=== PATIENT | female | born 1950 | race Caucasian/White ===

== ENCOUNTER → 2019-04-24 | Day surgery (SDC) | payer OTHER ==
[~2019-04-24] VITALS: Ht 149.8 cm; Wt 83.9 kg
[~2019-04-24] MED LIST: CELEBREX50 MG PO; CELEXA20 MG PO; CITALOPRAM20 MG PO; LEVOTHYROXINE75 MCG PO; METFORMIN XR500 MG PO; SEPTRA DS1 TAB PO; VITAMIN D400 I1 PO
[2019-04-24 07:02] VITALS: BP 127/76
[2019-04-24 07:51] VITALS: BP 126/74
[2019-04-24 08:06] VITALS: BP 138/75
[2019-04-24 08:23] VITALS: BP 133/69
== END | disposition home or self-care (01) ==
LOC: SDC 04-21 08:45
DX: Z12.11 Encounter for screening for malignant neoplasm of colon (principal); F41.9 Anxiety disorder, unspecified; F32.9 Major depressive disorder, single episode, unspecified; E11.9 Type 2 diabetes mellitus without complications; E66.9 Obesity, unspecified; Z68.37 Body mass index [BMI] 37.0-37.9, adult; Z79.899 Other long term (current) drug therapy
CPT/HCPCS: 00812; G0121

== ENCOUNTER → 2019-04-27 | Outpatient (CLI) | payer OTHER ==
[~2019-04-27] VITALS: Ht 149.8 cm; Wt 83.9 kg
== END | disposition home or self-care (01) ==
LOC: US 03-19 07:30
DX: K76.0 Fatty (change of) liver, not elsewhere classified (principal); R94.5 Abnormal results of liver function studies; K80.20 Calculus of gallbladder without cholecystitis without obstruction

== ENCOUNTER 2020-01-21 16:27 | Emergency (ER) | payer OTHER ==
[~2020-01-21] VITALS: Ht 149.8 cm; Wt 81.6 kg
== END 2020-01-21 19:52 | disposition home or self-care (01) ==
LOC: ED 16:27
DX: S01.81XA Laceration without foreign body of other part of head, initial encounter (principal); M54.2 Cervicalgia; E11.9 Type 2 diabetes mellitus without complications; J45.909 Unspecified asthma, uncomplicated; Z79.899 Other long term (current) drug therapy; W18.39XA Other fall on same level, initial encounter; Y93.89 Activity, other specified; Y92.098 Other place in other non-institutional residence as the place of occurrence of the external cause; Y99.8 Other external cause status

== ENCOUNTER → 2020-02-10 | Outpatient (CLI) | payer OTHER ==
[2020-02-10 11:15] LABS: BASO % 0.9 % (0.0-1.0); EOS # 0.1 10*3/uL (0.0-0.4); EOS % 1.9 % (1.0-4.0); HEMATOCRIT 38.4 % (37.0-47.0); LYMPH # 1.6 10*3/uL (1.3-4.4); MEAN CELL VOLUME 92.5 fl (81.0-99.0); MEAN CORPUSCULAR HGB 30.8 pg (27.0-31.0); MEAN CORPUSCULAR HGB CONC 33.3 g/dl (33.0-37.0); MEAN PLATELET VOLUME 9.6 fl (9.6-12.3); MONO # 0.4 10*3/uL (0.1-1.0); MONO % 9.1 % (3.0-9.0); NEUT # 2.1 10*3/uL (2.3-7.9); NEUT % 49.4 % (47.0-73.0); PLATELET COUNT AUTOMATED 216 10*3/uL (130-400); RED BLOOD COUNT 4.15 10*6/uL (4.10-5.10); RED CELL DISTRI WIDTH 12.8 % (0-14.5); RETICULOCYTE % 2.45 % (0.50-2.50); WHITE BLOOD COUNT 4.3 10*3/uL (4.8-10.8)
[2020-02-10 11:33] LABS: BILIRUBIN NEGATIVE (NEGATIVE); BLOOD NEGATIVE (NEGATIVE); CLARITY CLEAR (CLEAR); COLOR YELLOW (YELLOW); GLUCOSE NEGATIVE (NEGATIVE); KETONE NEGATIVE (NEGATIVE); LEUKO ESTERASE 2+ (NEGATIVE); NITRITE NEGATIVE (NEGATIVE); SPECIFIC GRAVITY 1.015 (1.005-1.030); UROBILINOGEN 0.2 E.U./dl (0.2-1.0)
[2020-02-10 11:36] LABS: ALBUMIN 4.3 gm/dl (3.1-4.5); BUN 19 mg/dl (7-24); CHLORIDE 101 mmol/L (98-107); CHOLESTEROL 212 mg/dL (<200); GAMMA GLUTAMYL TRANSPEPTIDASE 60 U/L (5-55); SODIUM 135 mmol/L (136-145)
[2020-02-10 11:46] LABS: ALKALINE PHOSPHATASE 113 U/L (45-117); CPK 78 U/L (26-192); CREATININE 0.79 mg/dL (0.55-1.02); HDL CHOLESTEROL 84 mg/dl (40-60); IRON 101 ug/dL (50-170); LDL CHOLESTEROL 108 mg/dL (9-159); SGOT/AST 27 IU/L (3-35); SGPT/ALT 39 U/L (12-78); T3 UPTAKE 30 % (31-39); THYROXINE (T4) TOTAL 11.3 ug/dl (4.8-13.9); TOTAL IRON BINDING CAPACITY 357 ug/dl (250-450); TRIGLYCERIDES 99 mg/dl (<150); VLDL CHOLESTEROL 20 mg/dL (6-40)
[2020-02-10 12:06] LABS: VITAMIN D, 25-HYDROXY 55.4 ng/mL (30-100)
[2020-02-10 12:07] LABS: FERRITIN 209.4 ng/mL (10.0-291.0)
[2020-02-10 14:04] LABS: BACTERIA TRACE
== END | disposition home or self-care (01) ==
LOC: LAB 10:20
PROVIDERS: Family Medicine
DX: E11.9 Type 2 diabetes mellitus without complications (principal); E78.5 Hyperlipidemia, unspecified; E55.9 Vitamin D deficiency, unspecified; R79.89 Other specified abnormal findings of blood chemistry; R53.83 Other fatigue

== ENCOUNTER 2020-06-06 13:25 | Emergency (ER) | payer OTHER ==
[~2020-06-06] VITALS: Ht 149.8 cm; Wt 81.2 kg
[2020-06-06 15:36] LABS: BILIRUBIN Negative (Negative); BLOOD Negative (Negative); CLARITY Clear (Clear); COLOR Yellow (Yellow); GLUCOSE Negative (Negative); KETONE Negative (Negative); LEUKO ESTERASE 3+ (Negative); NITRITE Negative (Negative); SPECIFIC GRAVITY 1.015 (1.001-1.030)
[2020-06-06 15:48] LABS: BACTERIA 2+
[2020-06-06 15:49] LABS: EPITHELIAL CELLS 16-20
[2020-06-06 16:28] LABS: BASO # 0.1 10*3/uL (0.0-0.1); EOS # 0.1 10*3/uL (0.0-0.4); HEMATOCRIT 40.5 % (37.0-47.0); LYMPH % 39.1 % (27.0-41.0); MEAN CELL VOLUME 95.1 fl (81.0-99.0); MEAN CORPUSCULAR HGB 30.8 pg (27.0-31.0); MEAN CORPUSCULAR HGB CONC 32.3 g/dl (33.0-37.0); MEAN PLATELET VOLUME 9.4 fl (9.6-12.3); MONO # 0.4 10*3/uL (0.1-1.0); MONO % 8.2 % (3.0-9.0); NEUT # 2.5 10*3/uL (2.3-7.9); NEUT % 48.7 % (47.0-73.0); PLATELET COUNT AUTOMATED 174 10*3/uL (130-400); RED BLOOD COUNT 4.26 10*6/uL (4.10-5.10); RED CELL DISTRI WIDTH 12.6 % (0-14.5); WHITE BLOOD COUNT 5.1 10*3/uL (4.8-10.8)
[2020-06-06 16:44] LABS: ALBUMIN 4.3 gm/dl (3.1-4.5); ALKALINE PHOSPHATASE 106 U/L (45-117); BUN 17 mg/dl (7-24); CHLORIDE 102 mmol/L (98-107); CREATININE 0.82 mg/dL (0.55-1.02); POTASSIUM 4.1 mmol/L (3.5-5.1); SGOT/AST 19 IU/L (3-35); SGPT/ALT 26 U/L (12-78); SODIUM 140 mmol/L (136-145); TOTAL PROTEIN 8.2 gm/dL (6.4-8.2)
[2020-06-06] MEDS ORDERED: OMNICEF300 MG PO (17:09)
[2020-06-06] MEDS ORDERED: Orphenadrine C100 MG PO (17:09)
== END 2020-06-06 17:32 | disposition home or self-care (01) ==
LOC: ED 13:25
PROVIDERS: Registered Nurse
DX: S39.012A Strain of muscle, fascia and tendon of lower back, initial encounter (principal); N39.0 Urinary tract infection, site not specified; Z79.899 Other long term (current) drug therapy; X50.0XXA Overexertion from strenuous movement or load, initial encounter; Y93.89 Activity, other specified; Y92.89 Other specified places as the place of occurrence of the external cause; Y99.8 Other external cause status

== ENCOUNTER → 2020-06-17 | Outpatient (CLI) | payer OTHER ==
[~2020-06-17] MED LIST changes: +OMNICEF300 MG PO; +Orphenadrine C100 MG PO
[2020-06-17 11:27] LABS: BASO # 0.1 10*3/uL (0.0-0.1); BASO % 0.9 % (0.0-1.0); EOS # 0.1 10*3/uL (0.0-0.4); EOS % 1.1 % (1.0-4.0); HEMATOCRIT 40.2 % (37.0-47.0); LYMPH # 1.9 10*3/uL (1.3-4.4); LYMPH % 33.2 % (27.0-41.0); MEAN CELL VOLUME 93.5 fl (81.0-99.0); MEAN CORPUSCULAR HGB 30.7 pg (27.0-31.0); MEAN CORPUSCULAR HGB CONC 32.8 g/dl (33.0-37.0); MEAN PLATELET VOLUME 10.4 fl (9.6-12.3); MONO # 0.4 10*3/uL (0.1-1.0); MONO % 6.6 % (3.0-9.0); NEUT # 3.2 10*3/uL (2.3-7.9); NEUT % 57.3 % (47.0-73.0); PLATELET COUNT AUTOMATED 211 10*3/uL (130-400); RED CELL DISTRI WIDTH 12.3 % (0-14.5); RETICULOCYTE % 1.38 % (0.50-2.50); WHITE BLOOD COUNT 5.6 10*3/uL (4.8-10.8)
[2020-06-17 11:58] LABS: ALBUMIN 4.2 gm/dl (3.1-4.5); BUN 24 mg/dl (7-24); CHLORIDE 103 mmol/L (98-107); GAMMA GLUTAMYL TRANSPEPTIDASE 53 U/L (5-55); POTASSIUM 3.9 mmol/L (3.5-5.1); SODIUM 139 mmol/L (136-145)
[2020-06-17 12:10] LABS: ALKALINE PHOSPHATASE 133 U/L (45-117); CHOLESTEROL 202 mg/dL (<200); CPK 70 U/L (26-192); CREATININE 0.82 mg/dL (0.55-1.02); HDL CHOLESTEROL 102 mg/dl (40-60); IRON 80 ug/dL (50-170); LDL CHOLESTEROL 83 mg/dL (9-159); SGOT/AST 24 IU/L (3-35); SGPT/ALT 37 U/L (12-78); T3 UPTAKE 29 % (31-39); THYROXINE (T4) TOTAL 11.2 ug/dl (4.8-13.9); TOTAL IRON BINDING CAPACITY 375 ug/dl (250-450); TOTAL PROTEIN 8.3 gm/dL (6.4-8.2); TRIGLYCERIDES 84 mg/dl (<150); VLDL CHOLESTEROL 17 mg/dL (6-40)
[2020-06-17 13:17] LABS: VITAMIN D, 25-HYDROXY 45.9 ng/mL (30-100)
[2020-06-18 10:08] LABS: FERRITIN 104.9 ng/mL (10.0-291.0)
== END | disposition home or self-care (01) ==
LOC: LAB 09:59
PROVIDERS: ATTEND Family Medicine
DX: R79.89 Other specified abnormal findings of blood chemistry (principal); R53.83 Other fatigue; E78.5 Hyperlipidemia, unspecified; R74.8 Abnormal levels of other serum enzymes; E11.9 Type 2 diabetes mellitus without complications; E55.9 Vitamin D deficiency, unspecified

== ENCOUNTER → 2020-10-17 | Outpatient (CLI) | payer OTHER ==
[~2020-10-17] MED LIST changes: +ASPIRIN CHILDRE81 MG PO; +COLACE100 MG PO; +DOXYCYCLINE100 M3 PO; +GEMFIBROZIL600 MG PO; +GLUCOPHAGE500 M1 PO; +HYDROCODONE-AC1 EAC1 PO; +TRAMADOL HCL50 MG PO; +ULTRA-LIGHT RO1 EACH MC; +XARELTO10 MG PO
[2020-10-17 10:23] LABS: BASO # 0.1 10*3/uL (0.0-0.1); BASO % 1.1 % (0.0-1.0); EOS # 0.1 10*3/uL (0.0-0.4); EOS % 2.1 % (1.0-4.0); HEMATOCRIT 40.1 % (37.0-47.0); LYMPH # 1.9 10*3/uL (1.3-4.4); LYMPH % 36.6 % (27.0-41.0); MEAN CELL VOLUME 93.5 fl (81.0-99.0); MEAN CORPUSCULAR HGB 30.8 pg (27.0-31.0); MEAN CORPUSCULAR HGB CONC 32.9 g/dl (33.0-37.0); MEAN PLATELET VOLUME 9.8 fl (9.6-12.3); MONO # 0.5 10*3/uL (0.1-1.0); MONO % 10.1 % (3.0-9.0); NEUT # 2.6 10*3/uL (2.3-7.9); NEUT % 49.3 % (47.0-73.0); PLATELET COUNT AUTOMATED 207 10*3/uL (130-400); RED BLOOD COUNT 4.29 10*6/uL (4.10-5.10); RED CELL DISTRI WIDTH 12.3 % (0-14.5); WHITE BLOOD COUNT 5.2 10*3/uL (4.8-10.8)
[2020-10-17 10:51] LABS: ALBUMIN 4.2 gm/dl (3.1-4.5); BUN 22 mg/dl (7-24); CHLORIDE 100 mmol/L (98-107); GAMMA GLUTAMYL TRANSPEPTIDASE 24 U/L (5-55); POTASSIUM 4.2 mmol/L (3.5-5.1); SODIUM 135 mmol/L (136-145)
[2020-10-17 11:04] LABS: ALKALINE PHOSPHATASE 122 U/L (45-117); BILIRUBIN Negative (Negative); BLOOD Negative (Negative); CHOLESTEROL 201 mg/dL (<200); CLARITY Clear (Clear); COLOR Yellow (Yellow); CPK 55 U/L (26-192); CREATININE 0.86 mg/dL (0.55-1.02); GLUCOSE Negative (Negative); HDL CHOLESTEROL 85 mg/dl (40-60); IRON 89 ug/dL (50-170); KETONE Negative (Negative); LDL CHOLESTEROL 97 mg/dL (9-159); LEUKO ESTERASE 2+ (Negative); NITRITE Negative (Negative); SGOT/AST 19 IU/L (3-35); SGPT/ALT 25 U/L (12-78); T3 UPTAKE 31 % (31-39); THYROXINE (T4) TOTAL 10.4 ug/dl (4.8-13.9); TOTAL IRON BINDING CAPACITY 409 ug/dl (250-450); TOTAL PROTEIN 8.1 gm/dL (6.4-8.2); TRIGLYCERIDES 93 mg/dl (<150); UROBILINOGEN 0.2 E.U./dl (0.0-1.0); VLDL CHOLESTEROL 19 mg/dL (6-40)
[2020-10-17 11:45] LABS: BACTERIA TRACE
[2020-10-17 11:58] LABS: FERRITIN 159.2 ng/mL (10.0-291.0)
== END | disposition home or self-care (01) ==
LOC: LAB 09:46
PROVIDERS: ATTEND Family Medicine
DX: R79.89 Other specified abnormal findings of blood chemistry (principal); R53.83 Other fatigue; E78.5 Hyperlipidemia, unspecified; E11.9 Type 2 diabetes mellitus without complications; E55.9 Vitamin D deficiency, unspecified

== ENCOUNTER 2020-11-11 11:55 | Inpatient (IN) | payer OTHER ==
[~2020-11-11] VITALS: Ht 154.9 cm; Wt 88.5 kg
[~2020-11-11 11:55] MED LIST changes: -ASPIRIN CHILDRE81 MG PO; -COLACE100 MG PO; -DOXYCYCLINE100 M3 PO; -GEMFIBROZIL600 MG PO; -GLUCOPHAGE500 M1 PO; -HYDROCODONE-AC1 EAC1 PO; -TRAMADOL HCL50 MG PO; -ULTRA-LIGHT RO1 EACH MC; -XARELTO10 MG PO
[2020-11-11 12:02] VITALS: BP 153/83
[2020-11-11 14:13] LABS: BASO # 0.1 10*3/uL (0.0-0.1); BASO % 0.9 % (0.0-1.0); EOS % 0.7 % (1.0-4.0); HEMATOCRIT 40.4 % (37.0-47.0); LYMPH # 1.4 10*3/uL (1.3-4.4); LYMPH % 25.2 % (27.0-41.0); MEAN CELL VOLUME 93.1 fl (81.0-99.0); MEAN CORPUSCULAR HGB 30.6 pg (27.0-31.0); MEAN CORPUSCULAR HGB CONC 32.9 g/dl (33.0-37.0); MEAN PLATELET VOLUME 9.8 fl (9.6-12.3); MONO # 0.4 10*3/uL (0.1-1.0); MONO % 6.6 % (3.0-9.0); NEUT # 3.7 10*3/uL (2.3-7.9); NEUT % 65.3 % (47.0-73.0); PLATELET COUNT AUTOMATED 199 10*3/uL (130-400); RED BLOOD COUNT 4.34 10*6/uL (4.10-5.10); RED CELL DISTRI WIDTH 12.3 % (0-14.5); WHITE BLOOD COUNT 5.6 10*3/uL (4.8-10.8)
[2020-11-11 14:26] LABS: ALBUMIN 4.3 gm/dl (3.1-4.5); ALKALINE PHOSPHATASE 119 U/L (45-117); BUN 16 mg/dl (7-24); CHLORIDE 102 mmol/L (98-107); CREATININE 0.87 mg/dL (0.55-1.02); POTASSIUM 3.8 mmol/L (3.5-5.1); SGOT/AST 22 IU/L (3-35); SGPT/ALT 27 U/L (12-78); SODIUM 137 mmol/L (136-145); TOTAL PROTEIN 8.5 gm/dL (6.4-8.2)
[2020-11-11 16:05] VITALS: BP 165/82
[2020-11-11 17:05] VITALS: BP 149/77
[2020-11-11] MEDS ORDERED: GLUCOPHAGE500 M1 PO (17:41)
[2020-11-11] MEDS ORDERED: ASPIRIN CHILDRE81 MG PO (17:43)
[2020-11-11] MEDS ORDERED: GEMFIBROZIL600 MG PO (17:43)
[2020-11-11 20:00] VITALS: BP 127/59
[2020-11-12] VITALS (8 sets, daily range): BP systolic 128–151; BP diastolic 60–72
[2020-11-12 06:25] LABS: BASO % 0.9 % (0.0-1.0); BUN 22 mg/dl (7-24); CHLORIDE 100 mmol/L (98-107); CREATININE 1.05 mg/dL (0.55-1.02); EOS # 0.1 10*3/uL (0.0-0.4); EOS % 1.9 % (1.0-4.0); HEMATOCRIT 37.1 % (37.0-47.0); LYMPH % 43.4 % (27.0-41.0); MEAN CELL VOLUME 95.6 fl (81.0-99.0); MEAN CORPUSCULAR HGB 30.4 pg (27.0-31.0); MEAN CORPUSCULAR HGB CONC 31.8 g/dl (33.0-37.0); MEAN PLATELET VOLUME 9.8 fl (9.6-12.3); MONO # 0.4 10*3/uL (0.1-1.0); NEUT # 2.1 10*3/uL (2.3-7.9); NEUT % 44.2 % (47.0-73.0); PLATELET COUNT AUTOMATED 171 10*3/uL (130-400); POTASSIUM 3.9 mmol/L (3.5-5.1); RED BLOOD COUNT 3.88 10*6/uL (4.10-5.10); RED CELL DISTRI WIDTH 12.5 % (0-14.5); SODIUM 135 mmol/L (136-145); WHITE BLOOD COUNT 4.7 10*3/uL (4.8-10.8)
[2020-11-13] VITALS: BP 159/88
[2020-11-13 00:44] LABS: BILIRUBIN Negative (Negative); BLOOD Negative (Negative); CLARITY Clear (Clear); COLOR Yellow (Yellow); GLUCOSE 2+ (Negative); KETONE Negative (Negative); LEUKO ESTERASE 1+ (Negative); NITRITE Negative (Negative); SPECIFIC GRAVITY 1.025 (1.001-1.030); UROBILINOGEN 0.2 E.U./dl (0.0-1.0)
[2020-11-13 01:35] LABS: BACTERIA 1+; MUCOUS 1+
[2020-11-13 06:06] LABS: BASO % 0.4 % (0.0-1.0); HEMATOCRIT 35.1 % (37.0-47.0); LYMPH # 0.9 10*3/uL (1.3-4.4); LYMPH % 10.1 % (27.0-41.0); MEAN CELL VOLUME 95.6 fl (81.0-99.0); MEAN CORPUSCULAR HGB 31.3 pg (27.0-31.0); MEAN CORPUSCULAR HGB CONC 32.8 g/dl (33.0-37.0); MEAN PLATELET VOLUME 10.4 fl (9.6-12.3); MONO # 0.5 10*3/uL (0.1-1.0); NEUT # 7.3 10*3/uL (2.3-7.9); PLATELET COUNT AUTOMATED 179 10*3/uL (130-400); RED BLOOD COUNT 3.67 10*6/uL (4.10-5.10); RED CELL DISTRI WIDTH 12.1 % (0-14.5); WHITE BLOOD COUNT 8.9 10*3/uL (4.8-10.8)
[2020-11-13 06:23] LABS: BUN 19 mg/dl (7-24); CHLORIDE 102 mmol/L (98-107); CREATININE 0.96 mg/dL (0.55-1.02); POTASSIUM 4.4 mmol/L (3.5-5.1); SODIUM 135 mmol/L (136-145)
[2020-11-13 08:00] VITALS: BP 114/67
[2020-11-13 12:00] VITALS: BP 126/64
[2020-11-13 16:00] VITALS: BP 129/67
[2020-11-13] MEDS ORDERED: XARELTO10 MG PO (16:05)
[2020-11-13] MEDS ORDERED: DOXYCYCLINE100 M3 PO (16:10)
[2020-11-13] MEDS ORDERED: TRAMADOL HCL50 MG PO (16:10)
[2020-11-13 20:00] VITALS: BP 108/59
[2020-11-14 00:37] VITALS: BP 139/78
[2020-11-14 08:00] VITALS: BP 135/68
[2020-11-14 12:00] VITALS: BP 137/61
[2020-11-14] MEDS ORDERED: ULTRA-LIGHT RO1 EACH MC (13:49)
[2020-11-14] MEDS ORDERED: HYDROCODONE-AC1 EAC1 PO (14:02)
[2020-11-14] MEDS ORDERED: TRAMADOL HCL50 MG PO (14:02)
[2020-11-14] MEDS ORDERED: COLACE100 MG PO (14:02)
[2020-11-14 16:00] VITALS: BP 116/67
== END 2020-11-14 18:00 | disposition home or self-care (01) | DRG 493 ==
LOC: ED 11:55 → 4E 14:01 → EDHOLD 14:01 → 4E 14:35
PROVIDERS: Internal Medicine; Podiatrist; Registered Nurse; ADMIT Internal Medicine; ATTEND Internal Medicine
PROC: 2W3RX1Z Immobilization of Left Lower Leg using Splint (ICD-10-PCS; 2020-11-11)
PROC: 0QSK04Z Reposition Left Fibula with Internal Fixation Device, Open Approach (ICD-10-PCS; principal; 2020-11-12)
PROC: 0MQR0ZZ Repair Left Ankle Bursa and Ligament, Open Approach (ICD-10-PCS; 2020-11-12)
DX: S82.842A Displaced bimalleolar fracture of left lower leg, initial encounter for closed fracture (principal); D62 Acute posthemorrhagic anemia; S82.839A Other fracture of upper and lower end of unspecified fibula, initial encounter for closed fracture; E03.9 Hypothyroidism, unspecified; Z20.822 Contact with and (suspected) exposure to COVID-19; E55.9 Vitamin D deficiency, unspecified; E11.9 Type 2 diabetes mellitus without complications; E78.5 Hyperlipidemia, unspecified; W19.XXXA Unspecified fall, initial encounter; G89.18 Other acute postprocedural pain; X58.XXXA Exposure to other specified factors, initial encounter; Z79.899 Other long term (current) drug therapy; Y99.8 Other external cause status; Y93.89 Activity, other specified; Y92.008 Other place in unspecified non-institutional (private) residence as the place of occurrence of the external cause